=== PATIENT | female | born 1975 | race African-American/Black ===

== ENCOUNTER 2021-10-20 17:51 | Emergency (ER) | payer MEDICAID ==
[~2021-10-20] VITALS: Ht 167.6 cm; Wt 99.0 kg
[2021-10-20] MEDS ORDERED: CYCL5TAB MT (20:24)
[2021-10-20] MEDS ORDERED: KETOROLAC 30MG/ML VIAL IM ONE (20:30)
[2021-10-20 20:34] VITALS: BP 122/62
== END 2021-10-20 20:34 | disposition home or self-care (01) ==
LOC: ER 17:51
DX: R07.89 Other chest pain (principal); I10 Essential (primary) hypertension; Z88.4 Allergy status to anesthetic agent; V43.62XA Car passenger injured in collision with other type car in traffic accident, initial encounter; Y93.89 Activity, other specified; Y92.488 Other paved roadways as the place of occurrence of the external cause
CPT/HCPCS: 71046; 81025; 99283

== ENCOUNTER 2021-12-13 01:05 | Emergency (ER) | payer MEDICAID ==
[~2021-12-13] VITALS: Ht 170.2 cm; Wt 91.0 kg
[~2021-12-13 01:05] MED LIST: CYCL5TAB MT
[2021-12-13] MEDS ORDERED: NITROGLYCERIN 0.4MG TABLET SL SL PRN (01:45)
[2021-12-13] MEDS ORDERED: MORPHINE SULFATE 4 MG/ML CPJ (NOT FOR IM USE) IV ONE (01:45)
[2021-12-13] MEDS ORDERED: ASPIRIN 81MG TABLET PO ONE (01:45)
[2021-12-13 02:04] LABS: BASOPHILS % 0.5 % (0.0-2.0); CHLORIDE 105 mEq/L (98-107); EOSINOPHILS % 1.6 % (0.0-5.0); HEMATOCRIT. 37.5 % (36.0-48.0); HEMOGLOBIN. 12.4 g/dL (12.0-16.0); LYMPHOCYTES % 40.3 % (20.0-50.0); MEAN CORPUSCULAR VOLUME 87.4 fL (81.0-99.0); MEAN PLATELET VOLUME 8.5 fl (7.4-10.4); MONOCYTES % 6.7 % (2.0-8.0); NEUTROPHILS % 50.9 % (40.0-76.0); PLATELET 294 x1000/uL (130-400); RED BLOOD CELL COUNT 4.29 mill/uL (4.2-5.4); RED CELL DISTRIBUTION WIDTH 14.1 % (11.6-14.6)
[2021-12-13 02:50] LABS: CLARITY URINE CLEAR (CLEAR); COLOR URINE YELLOW (YELLOW); KETONES URINE TRACE (NEGATIVE); LEUKOCYTE ESTERASE URINE NEGATIVE (NEGATIVE); NITRITE URINE NEGATIVE (NEGATIVE); OCCULT BLOOD URINE NEGATIVE (NEGATIVE); PROTEIN URINE TRACE (NEGATIVE); SPECIFIC GRAVITY URINE 1.028 (1.005-1.030)
[2021-12-13 04:00] VITALS: BP 147/87
== END 2021-12-13 04:37 | disposition home or self-care (01) ==
LOC: ER 01:05
DX: R07.89 Other chest pain (principal); R10.9 Unspecified abdominal pain; I10 Essential (primary) hypertension; J40 Bronchitis, not specified as acute or chronic; Z88.4 Allergy status to anesthetic agent; Z98.51 Tubal ligation status; Z90.710 Acquired absence of both cervix and uterus
CPT/HCPCS: 36415; 71045; 74176; 80053; 81003; 82962; 83690; 83880; 84484; 85025; 93005; 96374; 99285; J2270; Z7610

== ENCOUNTER 2022-06-26 06:54 | Emergency (ER) | payer MEDICAID ==
[~2022-06-26] VITALS: Ht 167.6 cm; Wt 88.0 kg
[2022-06-26 08:15] VITALS: BP 79/104
[2022-06-26] MEDS ORDERED: HYDROCODONE/ACETAMINOPHEN 5/325MG TABLET PO ONE (08:15)
[2022-06-26] MEDS ORDERED: IBUP-2029 MT (09:04)
[2022-06-26] MEDS ORDERED: GABA-529 MT (09:04)
== END 2022-06-26 09:32 | disposition home or self-care (01) ==
LOC: ER 06:54
DX: M54.12 Radiculopathy, cervical region (principal); I10 Essential (primary) hypertension; Z13.9 Encounter for screening, unspecified; Z88.4 Allergy status to anesthetic agent; Z98.890 Other specified postprocedural states; Z98.51 Tubal ligation status
CPT/HCPCS: 99284

== ENCOUNTER 2022-07-04 21:48 | Emergency (ER) | payer MEDICAID ==
[~2022-07-04] VITALS: Ht 167.6 cm; Wt 91.5 kg
[~2022-07-04 21:48] MED LIST changes: +GABA-529 MT; +IBUP-2029 MT
[2022-07-05] MEDS ORDERED: IPRATROPIUM BROMIDE (0.02%) 0.5MG/2.5ML NEB HHN STA (00:34)
[2022-07-05] MEDS ORDERED: ALBUTEROL (0.083%) 2.5MG/3ML NEB HHN STA (00:34)
[2022-07-05 01:19] LABS: BASOPHILS % 0.6 % (0.0-2.0); HEMATOCRIT. 36.9 % (36.0-48.0); HEMOGLOBIN. 12.5 g/dL (12.0-16.0); LYMPHOCYTES % 29.4 % (20.0-50.0); MEAN CORPUSCULAR HEMOGLOBIN 29.6 pg (28.0-32.0); MEAN CORPUSCULAR VOLUME 87.3 fL (81.0-99.0); MEAN PLATELET VOLUME 8.3 fl (7.4-10.4); MONOCYTES % 6.5 % (2.0-8.0); NEUTROPHILS % 61.5 % (40.0-76.0); PLATELET 308 x1000/uL (130-400); RED BLOOD CELL COUNT 4.23 mill/uL (4.2-5.4); RED CELL DISTRIBUTION WIDTH 13.9 % (11.6-14.6)
[2022-07-05 01:20] LABS: CHLORIDE 108 mEq/L (98-107)
[2022-07-05 03:00] VITALS: BP 152/80
[2022-07-05] MEDS ORDERED: AM250 MT (04:06)
[2022-07-05] MEDS ORDERED: ALBU6.7H3 INH (04:06)
== END 2022-07-05 04:53 | disposition home or self-care (01) ==
LOC: ER 21:48
DX: J45.909 Unspecified asthma, uncomplicated (principal); Z98.51 Tubal ligation status
CPT/HCPCS: 36415; 71045; 80053; 83880; 84484; 85025; 93005; 94640; 99285; Z7610

== ENCOUNTER 2022-12-23 21:02 | Emergency (ER) | payer MEDICAID ==
[~2022-12-23] VITALS: Ht 165.1 cm; Wt 92.9 kg
[~2022-12-23 21:02] MED LIST changes: +ALBU6.7H3 INH; +AM250 MT
[2022-12-23 21:20] VITALS: BP 164/108; RESP 15; TEMP 97.6; O2SAT 98
[2022-12-23 21:21] VITALS: PULSE 84
[2022-12-24] MEDS ORDERED: NAPR-679 MT (00:14)
[2022-12-24] MEDS ORDERED: SULF1TAB48 MT (00:15)
[2022-12-24] MEDS ORDERED: CEPH500T MT (00:15)
== END 2022-12-24 00:50 | disposition home or self-care (01) ==
LOC: ER 21:02
DX: L02.416 Cutaneous abscess of left lower limb (principal); L03.116 Cellulitis of left lower limb; J45.909 Unspecified asthma, uncomplicated; I10 Essential (primary) hypertension; Z88.4 Allergy status to anesthetic agent; Z98.890 Other specified postprocedural states; Z90.710 Acquired absence of both cervix and uterus; Z98.51 Tubal ligation status
CPT/HCPCS: 81025; 99283

== ENCOUNTER 2023-12-31 16:10 | Inpatient (IN) | payer SELFPAY ==
[~2023-12-31] VITALS: Ht 167.6 cm; Wt 91.6 kg
[~2023-12-31 16:10] MED LIST changes: +CEPH500T MT; +NAPR-679 MT; +SULF1TAB48 MT
[2023-12-31 16:51] LABS: CHLORIDE 109 mEq/L (98-107); POTASSIUM 3.5 mEq/L (3.5-5.1); SODIUM 143 mEq/L (136-145)
[2023-12-31 16:52] LABS: CARBON DIOXIDE 30 mEq/L (21-32)
[2023-12-31 16:53] LABS: CALCIUM 9.5 mg/dL (8.7-10.4)
[2023-12-31 16:57] LABS: GLUCOSE 103 mg/dL (70-105); UREA NITROGEN BLOOD 10 mg/dL (9-23)
[2023-12-31 17:00] LABS: TROPONIN I HIGH SENSITIVITY < 4 ng/L (3.0-34)
[2023-12-31 17:07] LABS: BASOPHILS % 0.5 % (0.0-2.0); EOSINOPHILS % 2.9 % (0.0-5.0); HEMATOCRIT. 39.1 % (36.0-48.0); HEMOGLOBIN. 12.8 g/dL (12.0-16.0); LYMPHOCYTES % 40.1 % (20.0-50.0); MEAN CORPUSCULAR HEMOGLOBIN 28.9 pg (28.0-32.0); MEAN CORPUSCULAR HGB CONC 32.8 g/dL (31.0-37.0); MEAN CORPUSCULAR VOLUME 88.1 fL (81.0-99.0); MEAN PLATELET VOLUME 8.5 fl (7.4-10.4); MONOCYTES % 5.2 % (2.0-8.0); NEUTROPHILS % 51.3 % (40.0-76.0); PLATELET 306 x1000/uL (130-400); RED BLOOD CELL COUNT 4.43 mill/uL (4.2-5.4); RED CELL DISTRIBUTION WIDTH 13.9 % (11.6-14.6); WHITE BLOOD COUNT 8.5 x1000/uL (4.5-11.0)
[2023-12-31 17:18] LABS: HCG SCREEN NEGATIVE
[2023-12-31 17:31] LABS: D-DIMER < 0.19 mg/L FEU (<0.50); PARTIAL THROMBOPLASTIN TIME 30.6 sec (23.4-31.0)
[2023-12-31] MEDS ORDERED: IPRATROPIUM/ALBUTEROL 0.5-3(2.5)MG/3ML NEB HHN PRN (19:45)
[2023-12-31] MEDS ORDERED: ACETAMINOPHEN 325MG TABLET PO PRN (19:45)
[2023-12-31] MEDS ORDERED: DOCUSATE SODIUM 100MG CAPSULE PO PRN (19:45)
[2023-12-31] MEDS ORDERED: GUAIFENESIN 200MG/10ML SUGAR FREE UDC PO PRN (19:45)
[2023-12-31] MEDS ORDERED: CLONIDINE 0.1MG TABLET PO PRN (19:45)
[2023-12-31] MEDS ORDERED: ONDANSETRON HCL 4MG/2ML INJ IV PRN (19:45)
[2023-12-31] MEDS ORDERED: MAGNESIUM/ALUMINUM HYDROXIDE/SIMETHICONE 30ML UDC PO PRN (19:45)
[2023-12-31] MEDS: IOHEXOL-350 100 ML BOTTLE ONE (20:11)
[2023-12-31] MEDS: AMLODIPINE 5MG TABLET PO SCH (20:25)
[2023-12-31 22:45] LABS: TROPONIN I HIGH SENSITIVITY 4 ng/L (3.0-34)
[2023-12-31 22:46] LABS: CREATINE KINASE 148 IU/L (34-145)
[2024-01-01] MEDS ORDERED: NALOXONE HCL 0.4MG/ML VIAL IV PRN (05:30)
[2024-01-01 06:41] LABS: BASOPHILS % 0.8 % (0.0-2.0); DIFFERENTIAL COMMENT 0; EOSINOPHILS % 3.6 % (0.0-5.0); HEMATOCRIT. 38.6 % (36.0-48.0); HEMOGLOBIN. 12.6 g/dL (12.0-16.0); MEAN CORPUSCULAR HEMOGLOBIN 28.8 pg (28.0-32.0); MEAN CORPUSCULAR HGB CONC 32.8 g/dL (31.0-37.0); MEAN CORPUSCULAR VOLUME 87.8 fL (81.0-99.0); MEAN PLATELET VOLUME 8.8 fl (7.4-10.4); MONOCYTES % 6.4 % (2.0-8.0); NEUTROPHILS % 40.2 % (40.0-76.0); PLATELET 279 x1000/uL (130-400); RED BLOOD CELL COUNT 4.39 mill/uL (4.2-5.4); RED CELL DISTRIBUTION WIDTH 14.5 % (11.6-14.6); WHITE BLOOD COUNT 6.2 x1000/uL (4.5-11.0)
[2024-01-01 06:42] LABS: CHLORIDE 108 mEq/L (98-107); POTASSIUM 3.6 mEq/L (3.5-5.1); SODIUM 139 mEq/L (136-145)
[2024-01-01 06:43] LABS: CALCIUM 9.4 mg/dL (8.7-10.4); CARBON DIOXIDE 27 mEq/L (21-32)
[2024-01-01 06:48] LABS: CREATININE 0.9 mg/dL (0.6-1.0); GLUCOSE 104 mg/dL (70-105); TRIGLYCERIDE 58 mg/dL (0-150); UREA NITROGEN BLOOD 10 mg/dL (9-23)
[2024-01-01 06:49] LABS: CREATINE KINASE 143 IU/L (34-145); LDL CHOLESTEROL 89 mg/dL (5-100)
[2024-01-01 06:50] LABS: ALANINE AMINOTRANSFERASE 9 IU/L (10-49); ALBUMIN 4.1 g/dL (3.2-4.8); ASPARTATE AMINOTRANSFERASE 14 IU/L (<34); BILIRUBIN TOTAL 0.5 mg/dL (0.1-1.0); CHOLESTEROL 166 mg/dL (<200); HDL CHOLESTEROL 62 mg/dL (>65); PHOSPHORUS 4.1 mg/dL (2.5-4.9); PROTEIN TOTAL 6.6 g/dL (6.0-8.3)
[2024-01-01 06:51] LABS: TROPONIN I HIGH SENSITIVITY 4 ng/L (3.0-34)
[2024-01-01 06:52] LABS: T4 FREE 0.86 ng/dL (0.89-1.76); THYROID STIMULATING HORMONE 2.02 uIU/mL (0.55-4.78)
[2024-01-01 08:00] VITALS: BP 156/87; PULSE 67; RESP 20; TEMP 36.83628; O2SAT 98
[2024-01-01 09:51] VITALS: BP 156/87; PULSE 67; RESP 18; TEMP 36.7516
[2024-01-01] MEDS: PANTOPRAZOLE SODIUM 40 MG/VIAL IV SCH (10:01)
[2024-01-01] MEDS: ENOXAPARIN 40MG/0.4ML SYR SUBCUT SCH (10:01)
[2024-01-01 12:00] VITALS: BP 138/82; PULSE 75; RESP 20; TEMP 36.33624; O2SAT 100
[2024-01-01] MEDS ORDERED: LABETALOL 5MG/ML 4ML INJ IV PRN (13:00)
[2024-01-01 16:00] VITALS: BP_SYST 103; BP_SYST 113; BP_DIAS 60; BP_DIAS 62; PULSE 72; PULSE 77; RESP 20; TEMP 36.50292; O2SAT 98
[2024-01-01] MEDS: ACETAMINOPHEN 325MG TABLET PO PRN (16:45)
[2024-01-01 20:00] VITALS: BP 117/71; PULSE 77; RESP 18; TEMP 36.50292; O2SAT 94
[2024-01-01] MEDS: HYDROCODONE/ACETAMINOPHEN 5/325MG TABLET PO PRN (20:42)
[2024-01-02] VITALS: BP 115/70; PULSE 72; RESP 20; TEMP 36.3918; O2SAT 100
[2024-01-02 04:00] VITALS: BP 110/65; PULSE 72; RESP 18; TEMP 36.3918; O2SAT 99
[2024-01-02 07:53] VITALS: BP 134/81; PULSE 61; RESP 18; TEMP 36.72516; O2SAT 98
[2024-01-02 07:58] LABS: CHLORIDE 106 mEq/L (98-107); POTASSIUM 3.7 mEq/L (3.5-5.1); SODIUM 140 mEq/L (136-145)
[2024-01-02 07:59] LABS: CALCIUM 9.2 mg/dL (8.7-10.4); CARBON DIOXIDE 29 mEq/L (21-32)
[2024-01-02 08:04] LABS: GLUCOSE 101 mg/dL (70-105); UREA NITROGEN BLOOD 16 mg/dL (9-23)
[2024-01-02 08:06] LABS: BASOPHILS % 0.6 % (0.0-2.0); EOSINOPHILS % 5.2 % (0.0-5.0); HEMOGLOBIN. 13.2 g/dL (12.0-16.0); LYMPHOCYTES % 52.6 % (20.0-50.0); MEAN CORPUSCULAR HEMOGLOBIN 29.4 pg (28.0-32.0); MEAN CORPUSCULAR HGB CONC 33.1 g/dL (31.0-37.0); MEAN CORPUSCULAR VOLUME 88.9 fL (81.0-99.0); MEAN PLATELET VOLUME 9.1 fl (7.4-10.4); MONOCYTES % 4.8 % (2.0-8.0); NEUTROPHILS % 36.8 % (40.0-76.0); PLATELET 296 x1000/uL (130-400); RED BLOOD CELL COUNT 4.49 mill/uL (4.2-5.4); RED CELL DISTRIBUTION WIDTH 14.1 % (11.6-14.6); WHITE BLOOD COUNT 6.2 x1000/uL (4.5-11.0)
[2024-01-02] MEDS ORDERED: AMLO5TAB88 PO (11:11)
[2024-01-02 12:00] VITALS: BP 129/80; PULSE 69; RESP 18; TEMP 36.78072; O2SAT 100
[2024-01-02 12:43] VITALS: BP 129/80; PULSE 69; TEMP 98.2; O2SAT 100
== END 2024-01-02 13:00 | disposition home or self-care (01) | DRG 207 ==
LOC: ER 16:10 → 5WST 19:26 → EDBEDREQTM 19:28 → EDBEDREQ 19:28 → 8WST 01-01 09:45
PROVIDERS: ADMIT Internal Medicine; ATTEND Internal Medicine
DX: I30.1 Infective pericarditis (principal); B97.89 Other viral agents as the cause of diseases classified elsewhere; I10 Essential (primary) hypertension; Z20.822 Contact with and (suspected) exposure to COVID-19; Z79.899 Other long term (current) drug therapy; Z82.49 Family history of ischemic heart disease and other diseases of the circulatory system; Z90.710 Acquired absence of both cervix and uterus; Z91.148 Patient's other noncompliance with medication regimen for other reason; Z88.4 Allergy status to anesthetic agent
CPT/HCPCS: 36415; 71045; 71275; 80048; 80053; 80061; 82550; 83605; 83735; 83880; 84100; 84145; 84439; 84443; 84484; 84703; 85025; 85379; 85651; 87426; 87804; 93005; 93306; 93970; 99285; J1650; J2470; Q9967

== ENCOUNTER 2024-06-02 08:38 | Emergency (ER) | payer MEDICAID, OTHER ==
[~2024-06-02] VITALS: Ht 167.6 cm; Wt 93.0 kg
[~2024-06-02 08:38] MED LIST changes: -AM250 MT; +AMLO5TAB88 PO; +ASPI-1406 PO; -CEPH500T MT; +COLC0.6C3 MT; -CYCL5TAB MT; +CYCL5TAB3 MT; +NITR0.4T49 SL; -SULF1TAB48 MT
[2024-06-02 08:42] VITALS: O2SAT 100
[2024-06-02] MEDS: KETOROLAC 30MG/ML VIAL IM ONE (09:17)
[2024-06-02] MEDS: OXYCODONE HCL/ACETAMINOPHEN 5/325MG TABLET PO ONE (10:44)
[2024-06-02] MEDS ORDERED: IBUP-2030 MT (10:49)
[2024-06-02 10:57] VITALS: BP 156/91; PULSE 78; RESP 18; TEMP 37.1; O2SAT 100
== END 2024-06-02 11:19 | disposition home or self-care (01) ==
LOC: ER 08:38
DX: S83.242A Other tear of medial meniscus, current injury, left knee, initial encounter (principal); I10 Essential (primary) hypertension; Z91.018 Allergy to other foods; Z88.4 Allergy status to anesthetic agent; Z79.899 Other long term (current) drug therapy; Z79.82 Long term (current) use of aspirin; Z90.710 Acquired absence of both cervix and uterus; Z98.51 Tubal ligation status; W01.0XXA Fall on same level from slipping, tripping and stumbling without subsequent striking against object, initial encounter; Y93.89 Activity, other specified; Y92.89 Other specified places as the place of occurrence of the external cause; Y99.8 Other external cause status
CPT/HCPCS: 99283; 29505; 81025; 73562; 96372; J1885